=== PATIENT | female | born 1945 | race Two or more races ===

== ENCOUNTER 2017-02-02 10:46 | Emergency (ER) | payer OTHER ==
[~2017-02-02] VITALS: Ht 154.9 cm; Wt 77.1 kg
[2017-02-02 11:06] VITALS: BP 141/61
[2017-02-02] MEDS ORDERED: KETOROLAC TROMETH 30 MG/ML 1ML VIAL IM ONE (13:15)
[2017-02-02] MEDS ORDERED: ONDANSETRON ODT 4 MG TAB PO ONE (13:15)
== END 2017-02-02 14:10 | disposition home or self-care (01) ==
LOC: ER 10:46
DX: G43.909 Migraine, unspecified, not intractable, without status migrainosus (principal); E23.6 Other disorders of pituitary gland; R42 Dizziness and giddiness; E78.5 Hyperlipidemia, unspecified; I10 Essential (primary) hypertension
CPT/HCPCS: 70450; 96372; 99284; J1885; Q0162